=== PATIENT | female | born 1970 | race Caucasian/White ===

== ENCOUNTER 2019-11-26 06:23 | Emergency (ER) | payer OTHER ==
[2019-11-26] MEDS ORDERED: NA CHLORIDE 0.9% 1,000 ML ONE (06:52)
[2019-11-26] MEDS ORDERED: ONDANSETRON 4 MG/2 ML VIAL ONE (06:52)
[2019-11-26] MEDS ORDERED: MORPHINE 4 MG/ML SYR ONE (06:52)
[2019-11-26 07:01] LABS: Basophils % 0.1 % (0-1.3); Hematocrit 39.7 % (36.0-45.0); MPV 11.1 fL (7.6-11.3); RBC Red Blood Cell Count 4.39 M/uL (3.86-4.86)
[2019-11-26 07:14] LABS: ALT/SGPT 17 U/L (12-78); AST/SGOT 12 U/L (15-37); Albumin 3.7 g/dL (3.4-5.0); Alkaline Phosphatase 42 U/L (45-117); BUN Blood Urea Nitrogen 17 mg/dL (7-18); Bicarbonate 22 mmol/L (21-32); Bilirubin Direct < 0.1 mg/dL (0-0.2); Bilirubin Total 0.3 mg/dL (0.2-1.0); Glucose Level 148 mg/dL (74-106); Lipase 159 U/L (73-393); Protein, Total 7.4 g/dL (6.4-8.2); Sodium Level 140 mmol/L (136-145)
--- NOTE | 2019-11-26 07:15 | RAD REPORT ---
EXAM DESCRIPTION: CT - Stone Protocol - 11/26/2019 6:54 am CLINICAL HISTORY: Flank pain. FLANK PAIN COMPARISON: No comparisons TECHNIQUE: Axial images were obtained without oral or IV contrast. Lack of contrast limits solid org an and vascular assessment. The [id number] spans the entirety of the system partially obscuring uppermost abdomen and lung bases. Coronal reformatted images were obtained and reviewed. All CT scans are performed using dose optimization technique as appropriate and may include automated exposure control or mA/KV adjustment according to patient size. FINDINGS: The lower lung odell are clear. Imaged portions of the liver and spleen show no suspicious findings on non-contrast imaging. The panc reas and adrenal glands are normal. No pathologic lymphadenopathy in the abdomen or pelvis. 3 mm left UVJ stone is present mild left hydronephrosis. Additional punctate left caliceal nephrolith iasis. No bowel obstruction, free air, free fluid or abscess. The appendix is not identified as a discrete s tructure, however, no secondary findings of appendicitis are identified. No significant bony abnormality. IMPRESSION: 3 mm left UVJ stone with mild left hydronephrosis. Additional punctate left nephrolithiasis.
[2019-11-26] MEDS ORDERED: KETOROLAC 30 MG/ML INJ ONE (07:49)
[2019-11-26 08:26] LABS: Platelet Estimate ADEQ; Urine White Blood Cell Casts OK
[2019-11-26 08:28] LABS: Blood Morphology Comment NOT SEEN (NOT SEEN)
[2019-11-26] MEDS ORDERED: TAMSULOSIN 0.4 MG SR CAP ONE (08:40)
--- NOTE | 2019-11-26 08:43 | EDPHYS ---
Physician Documentation [facility] Name: Sariah Bell Age: 49 yrs Sex: Female : 1970 Arrival Date: 11/26/2019 Time: 06:26 Bed 6 Private MD: Karlos Kwok V ED Physician Al Ramirez HPI: 11/25 06:46 This 49 yrs old Female presents to ER via Wheelchair with complaints of pm1 Abdominal Pain, Nausea/Vomiting. 06:46 The patient presents with abdominal pain in the left lower quadrant, and left flank pm1 pain. Onset: The symptoms/episode began/occurred this morning, at 03:00. Associated signs and symptoms: Pertinent positives: nausea and vomiting, Pertinent negatives: constipation, diarrhea, dysuria, fever. The symptoms are described as sharp, waxing/waning. Modifying factors: The symptoms are alleviated by nothing, the symptoms are aggravated by nothing. Severity of pain: in the emergency department the pain is actually worse. The patient has not experienced similar symptoms in the past. The patient has not recently seen a physician. Historical: - Allergies: 06:40 Sulfa (Sulfonamide Antibiotics); mg2 - Home Meds: 06:40 None [Active]; mg2 - PMHx: 06:40 None; mg2 - PSHx: 06:40 None; mg2 - Immunization history:: Flu vaccine status is unknown. - Social history:: Smoking status: Patient denies any tobacco usage or history of. ROS: 06:47 Constitutional: Negative for fever, chills, and weight loss, Cardiovascular: Negative pm1 for chest pain, palpitations, and edema, Respiratory: Negative for shortness of breath, cough, wheezing, and pleuritic chest pain. 06:47 : Negative for injury, bleeding, discharge, and swelling, MS/Extremity: Negative for injury and deformity, Skin: Negative for injury, rash, and discoloration, Neuro: Negative for headache, weakness, numbness, tingling, and seizure. 06:47 Abdomen/GI: Positive for abdominal pain, nausea and vomiting, of the left lower quadrant, Negative for diarrhea, constipation. 06:47 Back: Positive for flank pain, on the left. Exam: 06:47 Constitutional: This is a well developed, well nourished patient who is awake, alert, pm1 and in no acute distress. Head/Face: Normocephalic, atraumatic. 06:47 Abdomen/GI: Soft, non-tender. No distension or tympany. No guarding or rebound. No evidence of tenderness throughout. Back: No spinal tenderness. No costovertebral tenderness. Full range of motion. Skin: Warm, dry with normal turgor. Normal color with no rashes, no lesions, and no evidence of cellulitis. MS/ Extremity: Pulses equal, no cyanosis. Neurovascular intact. Full, normal range of motion. 06:47 Cardiovascular: Exam negative for acute changes, Rate: normal, Rhythm: regular, Pulses: no pulse deficits are appreciated, Edema: is not appreciated. 06:47 Respiratory: Exam negative for acute changes, respiratory distress, shortness of breath. 06:47 Neuro: Exam negative for acute changes, Orientation: is normal, Mentation: is normal, Motor: is normal, moves all fours. Vital Signs: 06:38 BP 137 / 48; Pulse 63; Resp 18; Temp 97.8(A); Pulse Ox 100% on R/A; Weight 58.97 kg; mg2 Height 5 ft. 8 in. (172.72 cm); Pain 10/10; 08:56 BP 127 / 93; Pulse 65; Resp 18; Pulse Ox 100% on R/A; Pain 0/10; jr10 06:38 Body Mass Index 19.77 (58.97 kg, 172.72 cm) mg2 MDM: 06:32 Patient medically screened. pm1 06:47 Data reviewed: vital signs. Data interpreted: Pulse oximetry: on room air is 100 %. pm1 Interpretation: normal. 07:29 Counseling: I had a detailed discussion with the patient and/or guardian regarding: the pm1 historical points, exam findings, and any diagnostic results supporting the discharge/admit diagnosis, lab results, radiology results. 08:42 Counseling: I had a detailed discussion with the patient and/or guardian regarding: the pm1 need for outpatient follow up, a family practitioner, a urologist, to return to the emergency department if symptoms worsen or persist or if there are any questions or concerns that arise at home. 11/25 06:38 Order name: Basic Metabolic Panel; Complete Time: 07:14 pm1 11/25 06:38 Order name: CBC with Diff; Complete Time: 08:31 pm1 11/25 06:38 Order name: Hepatic Function; Complete Time: 07:14 pm1 11/25 06:38 Order name: Lipase; Complete Time: 07:14 pm1 11/25 06:38 Order name: Urine Microscopic Only pm1 11/25 07:05 Order name: CBC Smear Scan; Complete Time: 08:31 EDMS 11/25 06:38 Order name: CT Stone Protocol; Complete Time: 07:23 pm1 11/25 08:54 Order name: Urine Dipstick--Ancillary (enter results) bd 11/25 08:54 Order name: Urine --Ancillary (enter results) bd 11/25 06:38 Order name: IV Saline Lock; Complete Time: 06:47 pm1 11/25 06:38 Order name: Labs collected and sent; Complete Time: 06:47 pm1 11/25 06:38 Order name: Urine Dipstick-Ancillary (obtain specimen); Complete Time: 08:42 pm1 11/25 06:38 Order name: Urine Test (obtain specimen); Complete Time: 06:47 pm1 Administered Medications: 06:45 Drug: morphine 4 mg {Note: rass 1.} Route: IVP; Site: right antecubital; ea 08:43 Follow up: Response: No adverse reaction jr10 06:45 Drug: Zofran (Ondansetron) 4 mg Route: IVP; Site: right antecubital; ea 08:44 Follow up: Response: No adverse reaction jr10 06:46 Drug: NS 0.9% 1000 ml Route: IV; Rate: 1000 ml; Site: right antecubital; ea 08:43 Follow up: Response: No adverse reaction; IV Status: Completed infusion jr10 07:42 Drug: TORadol 30 mg Route: IVP; Site: right antecubital; jr10 08:43 Follow up: Response: No adverse reaction; Pain is decreased jr10 08:42 Drug: Flomax 0.4 mg Route: PO; jr10 Disposition: 08:58 Co-signature as Attending Physician, Al Ramirez MD. rn Disposition: 11/26/19 08:43 Discharged to Home. Impression: Calculus of kidney with calculus of ureter - Left. - Condition is Stable. - Discharge Instructions: Kidney Stones, Dietary Guidelines to Help Prevent Kidney Stones. - Prescriptions for Tylenol- Codeine #3 300-30 mg Oral Tablet - take 2 tablets by ORAL route every 6 hours As needed; 20 tablet. Zofran 4 mg Oral Tablet - take 1 tablet by ORAL route every 8 hours As needed; 20 tablet. Flomax 0.4 mg Oral Capsule, Sust. Release 24 hr - take 1 capsule by ORAL route once daily As needed 1/2 hour following the same meal each day; 10 capsule. Cipro 500 mg Oral Tablet - take 1 tablet by ORAL route every 12 hours for 7 days; 14 tablet. - Medication Reconciliation Form, Thank You Letter, Antibiotic Education, Prescription Opioid Use form. - Follow up: Emergency Department; When: As needed; Reason: Worsening of condition. Follow up: Private Physician; When: 2 - 3 days; Reason: Recheck today's complaints, Continuance of care, Re-evaluation by your physician. - Problem is new. - Symptoms have improved. Signatures: Dispatcher [employer] EDMS Al Ramirez MD MD rn Marinas, Patrick, NP [employer] pm1 Amber Nicole RN Robert Howell ea, RN RN mg2 Krystal Diaz RN RN jr10 Corrections: (The following items were deleted from the chart) 08:57 08:43 11/26/2019 08:43 Discharged to Home. Impression: Calculus of kidney with calculus jr10 of ureter - Left. Condition is Stable. Discharge Instructions: Kidney Stones, Dietary Guidelines to Help Prevent Kidney Stones. Prescriptions for Tylenol-Codeine #3 300-30 mg Oral Tablet - take 2 tablets by ORAL route every 6 hours As needed; 20 tablet, Zofran 4 mg Oral Tablet - take 1 tablet by ORAL route every 12 hours As needed; 20 tablet, Flomax 0.4 mg Oral Capsule, Sust. Release 24 hr - take 1 capsule by ORAL route once daily As needed 1/2 hour following the same meal each day; 10 capsule, Cipro 500 mg Oral Tablet - take 1 tablet by ORAL route every 12 hours for 7 days; 14 tablet. and Forms are Medication Reconciliation Form, Thank You Letter, Antibiotic Education, Prescription Opioid Use. Follow up: Emergency Department; When: As needed; Reason: Worsening of condition. Follow up: Private Physician; When: 2 - 3 days; Reason: Recheck today's complaints, Continuance of care, Re-evaluation by your physician. Problem is new. Symptoms have improved. pm1
--- NOTE | 2019-11-26 08:43 | ER ---
Nurse's Notes [facility] Name: Sariah Bell Age: 49 yrs Sex: Female : 1970 Arrival Date: 11/26/2019 Time: 06:26 Bed 6 Private MD: Karlos Kwok V Diagnosis: Calculus of kidney with calculus of ureter-Left Presentation: 11/25 06:38 Chief complaint: Patient states: i have LLQ pain radiating to the left flank with N/V mg2 since 3 am today. Coronavirus screen: Client denies travel out of the [place] in the last 14 days. Client reports previous positive COVID test result. Date of collection: October 2019. Ebola Screen: No symptoms or risks identified at this time. Initial Sepsis Screen: Does the patient meet any 2 criteria? No. Patient's initial sepsis screen is negative. Does the patient have a suspected source of infection? No. Patient's initial sepsis screen is negative. Risk Assessment: Do you want to hurt yourself or someone else? Patient reports no desire to harm self or others. Onset of symptoms was November 26, 2019 at 03:00. 06:38 Method Of Arrival: Wheelchair mg2 06:38 Acuity: ENEIDA 3 mg2 Triage Assessment: 06:40 General: Appears in no apparent distress. comfortable, Behavior is calm, cooperative. mg2 Pain: Complains of pain in abdomen Pain radiates to left flank. EENT: No deficits noted. Neuro: Level of Consciousness is awake, alert, obeys commands, Oriented to person, place, time, situation. Cardiovascular: Capillary refill < 3 seconds Patient's skin is warm and dry. Respiratory: Airway is patent Respiratory effort is even, unlabored, Respiratory pattern is regular, symmetrical. GI: Abdomen is flat, non-distended, Reports lower abdominal pain, nausea, vomiting. : Reports pain in left flank(s). Derm: Skin is intact, is healthy with good turgor, Skin is pink, warm \T\ dry. normal. Musculoskeletal: Circulation, motion, and sensation intact. Capillary refill < 3 seconds. Historical: - Allergies: 06:40 Sulfa (Sulfonamide Antibiotics); mg2 - Home Meds: 06:40 None [Active]; mg2 - PMHx: 06:40 None; mg2 - PSHx: 06:40 None; mg2 - Immunization history:: Flu vaccine status is unknown. - Social history:: Smoking status: Patient denies any tobacco usage or history of. Screenin:41 Abuse screen: Denies threats or abuse. Denies injuries from another. Nutritional mg2 screening: No deficits noted. Tuberculosis screening: No symptoms or risk factors identified. Fall Risk IV access (20 points). Assessment: 06:41 General: see triage assessment. mg2 Vital Signs: 06:38 BP 137 / 48; Pulse 63; Resp 18; Temp 97.8(A); Pulse Ox 100% on R/A; Weight 58.97 kg; mg2 Height 5 ft. 8 in. (172.72 cm); Pain 10/10; 08:56 BP 127 / 93; Pulse 65; Resp 18; Pulse Ox 100% on R/A; Pain 0/10; jr10 06:38 Body Mass Index 19.77 (58.97 kg, 172.72 cm) mg2 ED Course: 06:26 Patient arrived in ED. mr 06:26 Karlos Kwok MD is Private Physician. mr 06:32 Aleksey Castrejon NP is PHCP. pm1 06:32 Al Ramirez MD is Attending Physician. pm1 06:38 Robert Brice, JEWELS is Primary Nurse. mg2 06:40 Triage completed. mg2 06:40 Arm band placed on. mg2 06:42 Patient has correct armband on for positive identification. Door closed. Warm blanket mg2 given. 06:42 No provider procedures requiring assistance completed. mg2 06:44 Inserted saline lock: 20 gauge in right antecubital area, using aseptic technique. ds4 Blood collected. 06:54 CT Stone Protocol In Process Unspecified. EDMS 08:22 Primary Nurse role handed off by Robert Brice, RN jr10 08:22 Krystal Diaz, JEWELS is Primary Nurse. jr10 08:57 IV discontinued, intact, bleeding controlled, No redness/swelling at site. Pressure jr10 dressing applied. Administered Medications: 06:45 Drug: morphine 4 mg {Note: rass 1.} Route: IVP; Site: right antecubital; ea 08:43 Follow up: Response: No adverse reaction jr10 06:45 Drug: Zofran (Ondansetron) 4 mg Route: IVP; Site: right antecubital; ea 08:44 Follow up: Response: No adverse reaction jr10 06:46 Drug: NS 0.9% 1000 ml Route: IV; Rate: 1000 ml; Site: right antecubital; ea 08:43 Follow up: Response: No adverse reaction; IV Status: Completed infusion 10 07:42 Drug: TORadol 30 mg Route: IVP; Site: right antecubital; jr10 08:43 Follow up: Response: No adverse reaction; Pain is decreased 10 08:42 Drug: Flomax 0.4 mg Route: PO; jr10 Outcome: 08:43 Discharge ordered by MD. pm1 08:57 Discharged to home ambulatory. jr10 08:57 Condition: improved 08:57 Discharge instructions given to patient, Instructed on discharge instructions, follow up and referral plans. Demonstrated understanding of instructions, follow-up care, medications, Prescriptions given X 4. 08:57 Patient left the ED. jr10 Signatures: Dispatcher [employer] Miracle Kemp mr RuizRefugio ds4 Aleksey Castrejon, SKEIN DYER SKEIN DYER pm1 Amber Nicole RN RN ea Gardose, Michele, RN RN mg2 Rivera, Jessica, RN RN jr10
[2019-11-26 09:02] VITALS: TEMP 97.8; O2SAT 100
[2019-11-26 09:04] VITALS: BP 127/93
[2019-11-26 09:33] LABS: Urine Bacteria 20-50 /HPF (<20); Urine Culture Reflex Order REFLEXED; Urine Mucus 2+ /HPF (NONE SEEN); Urine RBC <5 /HPF (NONE SEEN)
[2019-11-26 10:23] LABS: Urine Blood TRACE (NEG); Urine Glucose NEGATIVE (NEG); Urine Protein 1+ (NEG); Urine Specific Gravity >1.030 (1.005-1.030); Urine pH 5.5 (5.0-7.0)
== END 2019-11-26 08:57 | disposition home or self-care (01) ==
LOC: ER 06:23
DX: N20.2 Calculus of kidney with calculus of ureter (principal); Z88.2 Allergy status to sulfonamides
CPT/HCPCS: 87088; 85025; 87086; 80048; 36415; 81025; 80076; 83690; 76377; 74176; J7030; J2405; 81003; 81015